=== PATIENT | female | born 1990 | race Caucasian/White ===

== ENCOUNTER 2024-03-19 22:41 | Emergency (ER) | payer SELFPAY ==
[2024-03-19 22:53] VITALS: BP 114/75; PULSE 105; RESP 22; TEMP 36.8; O2SAT 96; BMI 52.0
[2024-03-19 23:35] VITALS: BP 156/86; PULSE 93; RESP 18; O2SAT 100
[2024-03-19 23:38] LABS: Basophils # 0.1 10^3/uL (0.0-0.1); Basophils % 0.4 %; Eosinophils % 0.1 %; Hematocrit 47.8 % (36-47); Lymphocytes # 1.2 10^3/uL (0.8-4.8); Lymphocytes % 6.9 %; Mean Corpuscular HGB Conc 32.4 g/dL (30-55); Mean Corpuscular Hemoglobin 28.8 pg (27-33); Mean Corpuscular Volume 88.8 fl (85-98); Monocytes % 6.1 %; Neutrophils # 14.51 10^3/uL (1.8-7.7); Nucleated Red Blood Cells % 0 %; Platelet Count 258 10^3/cmm (157-399); Red Blood Count 5.38 10^6/uL (3.85-5.65); Red Cell Distribution Width 13.3 % (12.1-15.1); White Blood Count 16.85 10^3/uL (3.29-11.43)
[2024-03-19] MEDS: ondansetron 2 mg/ML SDV 2 mL 8 MG IVP (23:39)
[2024-03-19] MEDS: sodium chloride 0.9% 1,000 ML 999 ML IV (23:41)
[2024-03-19 23:49] LABS: HCG, Serum Qual Negative (Negative)
[2024-03-19 23:58] LABS: Alanine Aminotransferase 19 U/L (0-33); Albumin Level 3.5 g/dL (3.5-5.2); Alkaline Phosphatase 70 U/L (35-105); Anion Gap 16.6 (5-19); Aspartate Amino Transferase 17 U/L (0-32); Blood Urea Nitrogen 10 mg/dL (6-20); C Reactive Protein 267.4 mg/L (0.0-4.9); Calcium 8.9 mg/dL (8.5-10.5); Carbon Dioxide 24 mmol/L (22-29); Chloride 102 mmol/L (98-107); Creatinine Clr Calc Pharmacy 201.6055; Globulin 4.1 g/dL (1.3-4.6); Glomerular Filtration Rate 116.6 mL/min (90-130); Glucose 150 mg/dL (65-115); Lipase 20 U/L (13-60); Osmolality Calculated 290 mOsm/kg (285-295); Potassium 3.6 mmol/L (3.5-5.1); Sodium 139 mmol/L (136-145); Total Bilirubin 0.4 mg/dL (0.15-1.2); Total Protein 7.6 g/dL (6.6-8.7)
[2024-03-19 23:59] LABS: Lactic Sepsis W/Reflex 1.4 mmol/L (0.5-2.2)
[2024-03-20] VITALS: PULSE 90; RESP 18; O2SAT 98
--- NOTE | 2024-03-20 00:22 | CTR_ITS ---
PROCEDURE INFORMATION: Exam: CT Abdomen And Pelvis With Contrast Exam date and time: 03/20/2024 12:55 AM Age: 33 years old Clinical indication: Nausea and vomiting; Prior surgery; Surgery date: 6+ months; Surgery type: 2 c sections; Additional info: Abdominal pain TECHNIQUE: Imaging protocol: Computed tomography of the abdomen and pelvis with contrast. Radiation optimization: All CT scans at this facility use at least one of these dose optimization techniques: automated exposure control; mA and/or kV adjustment per patient size (includes targeted exams where dose is matched to clinical indication); or iterative reconstruction. Contrast material: OMNI 350; Contrast volume: 100 ml; Contrast route: INTRAVENOUS (IV); COMPARISON: No relevant prior studies available. RADIATION DOSE METRICS: Total DLP (mGy-cm): 1359.83 FINDINGS: Lungs: The lung bases are clear. Diaphragm: Very small hiatal hernia. Liver: There is mild fatty infiltration of the liver. Gallbladder and biliary ducts: No definite gallbladder abnormality by CT. No biliary tree dilation. Pancreas: Unremarkable. Spleen: Unremarkable. Adrenal glands: Unremarkable. Kidneys and ureters: Unremarkable. Stomach and bowel: No significant bowel distention. There are no CT findings to strongly suggest diverticulitis. Appendix: The appendix is visualized and appears normal. Intraperitoneal space: No free intraperitoneal air, or ascites. Vasculature: No evidence for abdominal aortic aneurysm. Lymph nodes: No retroperitoneal adenopathy. Urinary bladder: Unremarkable as visualized. Reproductive: An IUD is present within the uterus. The IUD is in less than optimal position, lying in the mid and lower uterus. One arm of the IUD appears to extend through the anterior myometrium, extending through the serosal surface about 2 mm. No surrounding fluid collection or inflammation. Bones/joints: No significant acute finding. Soft tissues: Very small umbilical hernia, containing only fat. CT/CT abdomen pelvis w con* [id number] IMPRESSION: 1. Normal appendix. 2. No free air or significant bowel distention. No evidence for bowel obstruction. 3. Malpositioned IUD, see above discussion. 4. Small hiatal hernia. 5. Other findings discussed above.
--- NOTE | 2024-03-20 00:24 | W.ED.NAVMDI ---
HPI - Nausea/Vomiting/Diarrhea General: Chief complaint: Nausea/Vomiting/Diarrhea Stated complaint: weakness, n/v Time Seen by Provider: 03/19/24 23:09 History of Present Illness: 33-year-old female who presents emergency room with nausea and vomiting and weakness. She says she has had nausea and vomiting for 3 to 4 days now. She has not had any medications to help. She just moved to town so she does not have a PCP. No focal abdominal pain. Says she has been having fevers. Related Data Previous Rx's Medication Instructions Recorded cefdinir 300 mg capsule 300 mg PO BID 5 days #10 caps 03/20/24 ondansetron 8 mg disintegrating 8 mg PO Q6H #14 tabs 03/20/24 tablet promethazine 25 mg rectal 25 mg GA Q6H PRN nausea and 03/20/24 suppository vomiting #12 ea Allergies Allergy/AdvReac Type Severity Reaction Status Date / Time No Known Allergies Allergy Verified 03/19/24 22:56 Review of Systems Narrative: Constitutional symptoms: Negative except as documented in HPI. Skin symptoms: Negative except as documented in HPI. Eye symptoms: Negative except as documented in HPI. ENMT symptoms: Negative except as documented in HPI. Respiratory symptoms: Negative except as documented in HPI. Cardiovascular symptoms: Negative except as documented in HPI. Gastrointestinal symptoms: Negative except as documented in HPI. Genitourinary symptoms: Negative except as documented in HPI. Musculoskeletal symptoms: Negative except as documented in HPI. Neurologic symptoms: Negative except as documented in HPI. Psychiatric symptoms: Negative except as documented in HPI. Endocrine symptoms: Negative except as documented in HPI. Physical Exam Narrative: EXAM NARRATIVE: General: Alert, no acute distress. Skin: Warm, dry. Head: Normocephalic, atraumatic. Neck: Supple, trachea midline. Eye: Extraocular movements are intact. Ears, nose, mouth and throat: Dry oral mucosa Cardiovascular: Regular, Normal peripheral perfusion. Respiratory: Lungs are clear to auscultation, respirations are non-labored, breath sounds are equal, Symmetrical chest wall expansion. Gastrointestinal: Soft, Nontender, Non distended Musculoskeletal: Normal ROM, no deformity. Neurological: Alert and oriented, No focal neurological deficit observed. Psychiatric: Cooperative, appropriate mood & affect. Course Vital Signs: Vital signs: Vital Signs Temperature 98.2 F 03/19/24 22:53 Pulse Rate 97 09/26/24 02:58 Respiratory Rate 14 03/20/24 02:58 Blood Pressure 143/83 03/20/24 02:58 Pulse Oximetry 98 03/20/24 02:58 Oxygen Delivery Me thod Room Air 03/20/24 00:00 MDM - Nausea/Vomiting/Diarrhea Medical Decision Making Medical decision making: Differential diagnosis for this patient with nausea and vomiting including but not limited to and based on the above HPI, review of systems and physical exam: Urinary tract infection. Appendicitis. Cholecystis. colitis. small bowel obstruction. crohn's flare. pancreatitis. gastritis. peptic ulcer. cyclic vomiting. Viral illness. Influenza. COVID. - Workup - labwork and imaging ordered to evaluate, rule in and rule out above pathologies. Lab Review: Laboratory results were reviewed and interpreted by myself the emergency room physician. Patient had fairly significant leukocytosis with a white count of 16.9. No renal failure. No anemia. Urine did appear possibly infected. Only 1-5 whites but 2+ bacteria. CT abdomen pelvis shows no acute findings. She did have a malpositioned IUD. I discussed this with the patient. This was reviewed and interpreted by myself the emergency room physician. I also reviewed the radiology report. I reviewed the patient's medical record. Reexamination: Patient remained stable. No increased work of breathing. No altered mental status. No focal motor deficits. I also discussed at length with patient that marijuana may be causing this and if she has continued episodes of nausea and vomiting like this that she might consider cessation for some time to see if this helps. She expresses understanding. Assessment and plan: Gastroenteritis Dehydration Urinary tract infection ?IV fluids and IV Rocephin in the emergency room. - Discharged home - Discussed findings and plan with patient. Answered any questions. - All laboratory values were reviewed and interpreted personally by myself, the ER physician - All imaging was reviewed and interpreted personally by myself, the ER physician. - Evaluation and treatment of this problem were appropriate in the emergency setting Lab Data 03/19/24 23:25 03/19/24 23:25 Radiology Impressions Abdomen/Pelvis CT 03/20/24 00:22 IMPRESSION: 1. Normal appendix. 2. No free air or significant bowel distention. No evidence for bowel obstruction. 3. Malpositioned IUD, see above discussion. 4. Small hiatal hernia. 5. Other findings discussed above. Laboratory Results WBC 16.85 10^3/uL (3.29-11.43) H 03/19/24 23: RBC 5.38 10^6/uL (3.85-5.65) 03/19/24 23:25 Hgb 15.50 g/dL (11.27-16.99) 03/19/24 23:25 Hct 47.8 % (36-47) H 03/19/24 23: MCV 88.8 fl (85-98) 03/19/24 23: MCH 28.8 pg (27-33) 03/19/24 23: MCHC 32.4 g/dL (30-55) 03/19/24 23: RDW 13.3 % (12.1-15.1) 03/19/24 23: Plt Count 258 10^3/cmm (157-399) 03/19/24 23: MPV 10.0 fL (7.4-10.4) 03/19/24 23: Neut % (Auto) 86.0 % 03/19/24 23: Lymph % (Auto) 6.9 % 03/19/24 23: Butts % (Auto) 6.1 % 03/19/24 23: Eos % (Auto) 0.1 % 03/19/24: Baso % (Auto) 0.4 % 03/19/24: Neut # (Auto) 14.51 10^3/uL (1.8-7.7) H 03/19/24 23: Lymph # (Auto) 1.2 10^3/uL (0.8-4.8) 03/19/24 23:25 Butts # (Auto) 1.0 10^3/uL (0.2-0.9) H 03/19/24 23:25 Eos # (Auto) 0.0 10^3/uL (0.0-0.8) 03/19/24 23:25 Baso # (Auto) 0.1 10^3/uL (0.0-0.1) 03/19/24 23:25 Nucleated RBC % (auto) 0 % 03/19/24 23: Nucleated RBCs # 0.0 /100WBC 03/19/24 23:25 Sodium 139 mmol/L (136-145) 03/19/24 23:25 Potassium 3.6 mmol/L (3.5-5.1) 03/19/24 23:25 Chloride 102 mmol/L (98-107) 03/19/24 23:25 Carbon Dioxide 24 mmol/L (22-29) 03/19/24 23:25 Anion Gap 16.6 (5-19) 03/19/24 23:25 BUN 10 mg/dL (6-20) 03/19/24 23:25 Creatinine 0.6 mg/dL (0.5-0.9) 03/19/24 23:25 GFR Calculation 116.6 mL/min (90-130) 03/19/24 23:25 Glucose 150 mg/dL (65-115) H 03/19/24 23:25 Calculated Osmolality 290 mOsm/kg (285-295) 03/19/24 23:25 Lactic Acid 1.4 mmol/L (0.5-2.2) 03/19/24 23:25 Calcium 8.9 mg/dL (8.5-10.5) 03/19/24 23:25 Total Bilirubin 0.4 mg/dL (0.15-1.2) 03/19/24 23:25 AST 17 U/L (0-32) 03/19/24 23:25 ALT 19 U/L (0-33) 03/19/24 23:25 Alkaline Phosphatase 70 U/L (35-105) 03/19/24 23:25 C-Reactive Protein 267.4 mg/L (0.0-4.9) H 03/19/24 23:25 Total Protein 7.6 g/dL (6.6-8.7) 03/19/24 23:25 Albumin 3.5 g/dL (3.5-5.2) 03/19/24 23:25 Globulin 4.1 g/dL (1.3-4.6) 03/19/24 23:25 Lipase 20 U/L (13-60) 03/19/24 23:25 HCG, Qual Negative (Negative) 03/19/24 23:25 Urine Color Dark yellow (Yellow) A 03/20/24 01:30 Urine Appearance Clear (CLEAR) 03/20/24 01:30 Urine pH 6.5 (5-7) 03/20/24 01:30 Ur Specific [place] 1.060 (1.005-1.030) H 03/20/24 01:30 Urine Protein 2+ (Negative) A 03/20/24 01:30 Urine Glucose (UA) Negative (Normal) 03/20/24 01:30 Urine Ketones Trace (Negative) 03/20/24 01:30 Urine Blood Non-haemolysed trace (Negative) 03/20/24 01:30 Urine Nitrate Negative (Negative) 03/20/24 01:30 Urine Bilirubin Negative (Negative) 03/20/24 01:30 Urine Urobilinogen 1.0 mg/dL (Negative) 03/20/24 01:30 Ur Leukocyte Esterase Negative (Negative) 03/20/24 01:30 Urine RBC 11-20 /hpf (0-2) H 03/20/24 01:30 Urine WBC 0-5 /hpf (0-5) 03/20/24 01:30 Ur Squamous Epith Cells 0-5 /hpf (0-5) 03/20/24 01:30 Amorphous Sediment Not Reportable 03/20/24 01:30 Urine Bacteria 2+ /hpf (NONE) H 03/20/24 01:30 Hyaline Casts 2.46 /lpf 03/20/24 01:30 Urine Opiates Screen Negative ng/mL (Negative) 03/20/24 01:30 Ur Barbiturates Screen Negative ng/mL (Negative) 03/20/24 01:30 Ur Phencyclidine Scrn Negative ng/mL (Negative) 03/20/24 01:30 Ur Amphetamines Screen Negative ng/mL (Negative) 03/20/24 01:30 U Benzodiazepines Scrn Negative ng/mL (Negative) 03/20/24 01:30 Urine Cocaine Screen Negative ng/mL (Negative) 03/20/24 01:30 U Marijuana (THC) Screen Positive ng/mL (Negative) H 03/20/24 01:30 Coronavirus (PCR) Negative (Negative) 03/20/24 01:30 Influenza A (PCR) Negative (Negative) 03/20/24 01:30 Influenza Type B (PCR) Negative (Negative) 03/20/24 01:30 RSV (PCR) Negative (Negative) 03/20/24 01:30 All radiology interpretation(s) finalized by discharge Discharge Plan Discharge Patient Disposition: Home Clinical Impression: Gastroenteritis, Dehydration Condition: Stable Prescriptions: New promethazine 25 mg suppository 25 mg GA Q6H PRN (Reason: nausea and vomiting) Qty: 12 0RF ondansetron 8 mg tablet,disintegrating 8 mg PO Q6H Qty: 14 0RF Rx Instructions: Take 1/2-1 tab every 6 hours as needed for nausea and vomiting cefdinir 300 mg capsule 300 mg PO BID 5 Days Qty: 10 0RF Discharge Orders: Discharge ED (Routine); Ordered 03/20/24 Ordered By: Romy Sandoval Referrals: Andreas Best MD [Physician] - (Please call for an appointment) Discharge Diet: Advance as tolerated Discharge Activity: Increase activity as tolerated Patient Instructions: Gastroenteritis (ED) Activity Restrictions/Additional Instructions: Please arrange for follow-up with a primary provider as soon as possible Please use supplemental protection for intercourse as your IUD appears to be in that position. Please follow-up with a router operator pin as soon as possible. Thank you for choosing [facility] for your healthcare needs today. Please realize this is an emergency room and that we are providing you with a medical screening exam and this may not be complete and all inclusive of all the testing and or work up that you may need to determine your ailment or severity of your illness. You have been screened and evaluated and felt safe for discharge. Health conditions do change or evolve sometimes and as such it is important that you follow up with your Primary Doctor to be re checked, 3-5 days is a general good time frame for follow up. You are always welcome to return to the ED for re assessment if your symptoms are worsening or you have new concerns Coding Level of Care Code ED Material Requirements Worker for Sabas Smith
[2024-03-20] MEDS: iohexol 350 mg/mL 500 mL Btl (per mL) IV (01:00)
[2024-03-20 01:47] VITALS: BP 143/83; PULSE 89; RESP 20; O2SAT 100
[2024-03-20 01:49] LABS: Bilirubin Urine Negative (Negative); Blood Urine Non-haemolysed trace (Negative); Glucose Urine UA Negative (Normal); Ketones Urine Trace (Negative); Leukocyte Esterase Urine Negative (Negative); Nitrate Urine Negative (Negative); Protein Urine 2+ (Negative); Urine Appearance Clear (CLEAR); Urine Color Dark Yellow (Yellow); pH Urine 6.5 (5-7)
[2024-03-20 01:53] LABS: Bacteria Urine 2+ /hpf; Hyaline Casts Urine 2.46 /lpf; Squamous Epithelial Cell Urine 0-5 /hpf (0-5); WBC Urine 0-5 /hpf (0-5)
[2024-03-20 01:56] LABS: Amphetamines Screen Urine Negative (Negative); Barbiturates Screen Urine Negative (Negative); Benzodiazepines Screen Urine Negative (Negative); Cocaine Screen Urine Negative (Negative); Opiate Screen Urine Negative (Negative); PCP Screen Urine Negative (Negative); THC Screen Urine Positive (Negative)
[2024-03-20 02:05] LABS: Add Urine Culture? Yes
[2024-03-20 02:23] LABS: Covid PCR NEGATIVE (Negative); Influenza A NEGATIVE (Negative); Influenza B NEGATIVE (Negative); Respiratory Syncytial Virus Ce NEGATIVE (Negative)
[2024-03-20 02:58] VITALS: BP 143/83; PULSE 97; RESP 14; O2SAT 98
== END 2024-03-20 03:07 | disposition home or self-care (01) ==
PROVIDERS: Emergency Provider Emergency Medicine
DX: K52.9 Noninfective gastroenteritis and colitis, unspecified (principal); E86.0 Dehydration; Z11.52 Encounter for screening for COVID-19
CPT/HCPCS: 0241U; 74177; 80053; 80306; 81001; 83605; 83690; 84703; 85025; 86140; 87040; 87086; 96374; 99285; J2405; J7030

== ENCOUNTER → 2024-12-25 08:43 | Outpatient (BNVA) | payer OTHER, SELFPAY | PROVIDERS: Visit Provider Obstetrics & Gynecology | DX: Z12.4 Encounter for screening for malignant neoplasm of cervix (principal) | CPT/HCPCS: 87624 ==

== ENCOUNTER 2024-12-30 03:18 | Emergency (ER) | payer OTHER, SELFPAY ==
--- OUTSIDE RECORDS SUMMARY | 2024-12-30 03:23 | XMS_ITS | Data Portability ---
Author Organization [facility] Roel Verduzco [facility], [facility], [facility] Address [address] [place] [address] Assessment Encounter Date Assessment Date Assessment LastModified by Organization Details LastModified Time 10/14/2024 10/14/2024 re-evaluated after neb treatment and IM steroid. Increased breath sounds and pt is breathing easier. [email or web address] Not available 10/14/2024 10:58:42 Plan of Treatment Reminders Order Date Submit Date Provider Last Modified By Organization Details Last Modified Time Details Appointments None recorded. Lab SARS CoV 2 RNA, QL, nasopharynx 2023 024 [email or web address] [facility] ([facility]), [address] [place], [address], 13:50:35 Referral None recorded. Procedures None recorded. Surgeries None recorded. Imaging None recorded. Medication Orders azithromyci n 250 mg tablet 2024 025 [facility] #[id number], [address], [address], 5 10:50:07 prednisone 20 mg tablet 2024 025 [facility] #[id number], [address], [address], 5 05:01:20 benzonatate 200 mg capsule 2024 025 [facility] #[id number], [address], [address], 10:50:32 Solu-Medrol (PF) 125 mg/2 mL solution for injection 2024 025 [email or web address] Not available 11:06:47 albuterol sulfate 2.5 mg/3 mL (0.083 %) solution for nebulizatio n 2024 025 [email or web address] Not available 11:06:47 ceftriaxone 1 gram solution for injection 2023 024 [email or web address] Not available 10:32:30 albuterol sulfate HFA 90 mcg/actuati on aerosol inhaler 2023 025 [facility] #[id number], [address] [facility], [place], [address], 10:32:38 doxycycline hyclate 100 mg tablet 2023 025 [facility], [address], [place], [address], 10:32:42 Patient TargetsNo targets recorded. Patient InstructionsNo instructions recorded. Reason for Referral None Reported. Results Created Date Observation Date Name Description Value Unit Range Abnormal Flag Note LastModifiedBy Organization Detail LastModifiedTime 03/31/20 24 03/31/2024 SARS CoV 2 RNA, QL, nasop haryn x COVID negati ve Not Available [facility] ([facility]) [address] [place], [address], 03/31/2024 13:28:49 Result Notes None recorded. Procedures Surgical History Date Name Laterality Status Provider Name and Address Organization Details Recorded Time 10/15/19 25 Nebulizer tx completed BO PHELPS [address] [place], [address], [facility] 10/14/2024 11:00:30 section completed [facility] 10/14/2024 10:34:38 tonsillectomy and adenoidectomy completed [facility]LJeet 10/14/2024 10:34:56 Ear Tube completed [facility], Deirdre 10/14/2024 10:35:08 Imaging Results None recorded. Procedure Notes None recorded. Medical Equipment None Reported. Allergies No known drug allergies Medications Name Sig Start Date Stop Date Status Note LastModified by Organization Details LastModified Time albuterol sulfate 2.5 mg/3 mL (0.083 %) solution for nebulizatio n Inhale 3 mL by nebulizat ion route. 2024 active Not Available Not Available Not Avai lable azithromyci n 250 mg tablet TAKE 2 TABLETS (500 MG) BY ORAL ROUTE ONCE DAILY FOR 1 DAY THEN 1 TABLET (250 MG) BY ORAL ROUTE ONCE DAILY FOR 4 DAYS 2024 active Not Available Not Available Not Avai lable benzonatate 200 mg capsule Take 1 capsule 3 times a day by oral route as needed, for cough. 2024 active Not Available Not Available Not Avai lable prednisone 20 mg tablet Take 2 tablets every day by oral route for 6 days. 10/27 completed Not Available Not Available Not Available ceftriaxone 1 gram solution for injection Take 1 g by injection route. 10/14 completed Not Available Not Available Not Available albuterol sulfate HFA 90 mcg/actuati on aerosol inhaler Inhale 2 puffs every 4 hours by inhalatio n route as needed. 10/14 completed Not Available Not Available Not Available doxycycline hyclate 100 mg tablet Take 1 tablet twice a day by oral route for 7 days. 10/14 completed Not Available Not Available Not Available Solu-Medrol (PF) 125 mg/2 mL solution for injection Take 125 mg by injection route. 2024 active Not Available Not Available Not Avai lable Vitals Date Recorded Body height Body mass index (BMI) Body weight Oxygen saturation Oxygen saturation in Arterial blood by Pulse oximetry Heart rate Respiratory rate Body temperature Systolic And Diastolic Provider Name and Address Organization Details Last Updated DateTime 5 167.64 cm 54.2 kg/m2 668666. 04 g 96 % 96 % 109 /min 22 /min 98.4 [degF] 144/86 mm[Hg] Chanda Torres [facility] 5 10:37:53 Date Recorded Body height Body mass index (BMI) Body weight Oxygen saturation Oxygen saturation in Arterial blood by Pulse oximetry Heart rate Body temperature Provider Name and Address Organization Details Last Updated DateTime 4 167.64 cm 53.6 kg/m2 236933. 67 g 97 % 97 % 102 /min 98.2 [degF] Aranza Piper [facility] 4 13:27:41 Social History None recorded. Functional Status None recorded. Mental Status None recorded. Family History Nothing Reported. Medical History No medical history recorded. Gynecological HistoryNo gynecological history recorded. Obstetrics History GPAL:G 0 P 0 0 0 0 Past Encounters Encounter ID Performer Location Encounter Start Date Encounter Closed Date Diagnosis/Indication Diagnosis SNOMED-CT Code Diagnosis ICD10 Code Diagnosis Note [id number] BO PHELPS [facility] ([facility]) [address] [place] [address] 03/31/2024 13:17:40 03/31/2024 18:17:03 Cough 83881274 R05.9 Community acquired pneumonia 128747343 J18.9 Discussed use of otc medication s for symptom management .Push oral fluids and rest.If you develop fever, sob, or start feeling worse then return for re-evaluat ion. [id number] BO PHELPS [facility] ([facility]) [address] [place] [address] 10/14/2024 10:27:56 10/14/2024 11:15:52 Acute bacterial bronchitis 667165428 J20.8 B96.89 Discussed use of otc medication s for symptom management .Push oral fluids and rest.If you develop fever, sob, or start feeling worse then return for re-evaluat ion. Acute bronchospasm 47103 10503 9100 J98.01 Airsuppra inhaler sample provided to pt today. Health Concerns Section Related Observation LastModified by Organization Detai ls LastModified Time None Recorded Concern Status LastModified by Organization Details LastModified Time None Recorded Advance Directives Directive None Recorded Payers Insurance Date Sequence Insurance Name Policy Number Policy Edwards Covered Member ID Edwards Member ID Guarantor Name 10/14/2024 1 *SELF PAY* Er maddie Hollis 12/16/[address] [facility] Nazanin Ashwin Hollis [id number] Nazanin Christopher Bunny Notes Date Note Type Note Provider Name and Address Organization Details Recorded Time 03/31/2024 text/html walk in pt.Pt rhoades s chest congestion, cough, ear pain and headache for 1 week. Has been taking sudaphed, nyquil. felt feverish a couple times. BO PHELPS [address] [place], [address], [facility] 04/02/2024 12:45:55 10/14/2024 text/html walk in patientpatient is here today for cough and shortness of breath, cough started about 2 weeks ago then shortness of breath started about a week ago. OTC medication and Proair inhaler is not helping. States minimal sputum production. Sometimes her nose will run. Denies sinus pressure or fever. Denies hx of asthma. BO PHELPS [address] [place], [address], [facility] 10/14/2024 11:07:31 OBGyn Episode No OBEpisode recorded.
[2024-12-30 03:30] VITALS: BP 150/97; PULSE 90; RESP 22; TEMP 36.7; O2SAT 98; BMI 58.1
--- NOTE | 2024-12-30 05:31 | W.ED.EAR ---
HPI - Ear Problem General: Chief complaint: Ear Stated complaint: Ears hurt fluid coming out of R Ear Time Seen by Provider: 12/30/24 05:25 History of Present Illness: 34-year-old female with a longstanding history of ear infections and history of tube placement presents with pain in her left ear. She feels like she has had a little bit of drainage. No fever. The right ear hurts to a lesser degree no nausea vomiting diarrhea. Patient reports this onset over the last couple of days has been worse tonight. The patient and her significant other recently moved to the area. Related Data Home Medications ?Medication ?Instructions ?Recorded ?Confirmed levonorgestrel 17.5 mcg/24 hr (up intrauterine 12/25/24 12/25/24 to 5 yrs) 19.5mg intrauterine device (Kyleena) Previous Rx's ?Medication ?Instructions ?Recorded amoxicillin 875 mg tablet 875 mg PO Q12H #14 tabs 12/30/24 Allergies Allergy/AdvReac Type Severity Reaction Status Date / Time No Known Allergies Allergy Verified 12/25/24 07:36 Review of Systems General: Reports: 10 or more systems reviewed and unremarkable except in HPI and below PFSH ED PFSH: Medical History History of stillbirth Surgical History Hx of section stillbirth, single umbillical artery Hx of section GDM, 36 weeks Family History Grandfather Diabetes Grandmother Diabetes Mother Diabetes Denies family history of Colon cancer Ovarian cancer Heart disease Hyperlipidemia Breast cancer Hypertension Uterine cancer Thyroid disease Stroke Social History Smoking and tobacco/nicotine status: current every day tobacco/nicotine user Physical Exam Const: COMMON NORMALS: no acute distress HENMT: COMMON NORMALS: TM's not normal bilaterally TYMPANIC MEMBRANE: TM abnormal; TM(s) not normal bilaterally and TM not normal on the right OTHER: Right tympanic membrane retracted on the left side reveals erythema and bulging Resp: EFFORT & INSPECTION: Yes able to speak in complete sentences Cardio: COMMON NORMALS: regular rate and regular rhythm RATE: regular rate RHYTHM: regular rhythm Skin: COMMON NORMALS: no rashes or lesions noted GENERAL SKIN EXAM: no rashes or lesions noted Course Vital Signs: Vital signs: Vital Signs Temperature 98.1 F 12/30/24 03:30 Pulse Rate 90 12/30/24 03:30 Respiratory Rate 22 H 12/30/24 03:30 Blood Pressure 150/97 12/30/24 03:30 Pulse Oximetry 98 12/30/24 03:30 Oxygen Delivery Me thod Room Air 12/30/24 03:30 MDM - Ear Medical Decision Making 34-year-old female in with concerns of ear pain found to have a left-sided otitis. Will give a dose of amoxicillin here prescription for the same she needs close follow-up on this. No radiology studies performed this visit Discharge Plan Discharge Patient Disposition: Home Clinical Impression: Otitis media Condition: Stable Prescriptions: New amoxicillin 875 mg tablet 875 mg PO Q12H Qty: 14 0RF No Action Kyleena 17.5 mcg/24 hr (5 yrs) 19.5 mg intrauterine device intrauterine Discharge Orders: Discharge ED (Routine); Ordered 12/30/24 Ordered By: Cirstiano Morales Discharge Diet: Advance as tolerated Discharge Activity: Resume usual activity Patient Instructions: Opioid Safety, Pain Management, Patient Portal & Santana Instructions Activity Restrictions/Additional Instructions: 1. Take medication as directed. 2. Take ibuprofen and/or Tylenol for pain. 3. Needs follow-up with primary care in 3 to 5 days for recheck. 4. Return to the emergency department for new or worsening symptoms. Print Language: Monegasque Coding Level of Care Code ED Public Health Policy Analyst for Sabas Smith
[2024-12-30] MEDS: HYDROcodone-acetaminophen 7.5-325 mg Tablet 1 TAB PO (05:54)
[2024-12-30 06:51] VITALS: BP 168/97; PULSE 89; RESP 16; O2SAT 97
== END 2024-12-30 06:28 | disposition home or self-care (01) ==
PROVIDERS: Emergency Provider Family Medicine
DX: H66.92 Otitis media, unspecified, left ear (principal); Z72.0 Tobacco use
CPT/HCPCS: 99283; J9999